=== PATIENT | female | born 1965 | race Caucasian/White ===

== ENCOUNTER 2017-07-29 15:15 | Emergency (ER) | payer OTHER ==
--- NOTE | 2017-07-29 17:22 | ED ---
General Adult HPI - General Chief complaint: Vaginal Bleeding Stated complaint: Female -sent by Time Seen by Provider: 07/29/17 16:32 Source: patient, family Mode of arrival: ambulatory Limitations: no limitations - History of Present Illness Initial comments: the patient is a 51-year-old female who presents with a chief complaint of vaginal bleeding. The patient states that her last menstrual period Was in September of this year.the patient states that she started having a period about one month ago and has continued to bleed until now. The patient has been seen by her primary care physician for this issue and he started her on control. The patient states that since that time, the bleeding has improved however it is not gone away. The patient was seen by her primary care doctor again today who gisela blood and sent her to the emergency department. The patient admits to being more fatigued recently and to having some cramping lower abdominal pain however she does not admit to any dizziness, lightheadedness, chest pain, or shortness of breath. The patient cannot identify any inciting incidences. There are no aggravating or alleviating factors. The patient states that she was having to change her pain Her about every 3 hours however this has improved since starting the control. - Related Data Home Medications Medication Instructions Recorded Confirmed Lisinopril [Zestril] 5 mg PO DAILY 10/30/15 07/29/17 Multivitamins, Thera [Multivitamin 1 tab PO DAILY 07/29/17 07/29/17 (formulary)] Omeprazole [PriLOSEC] 20 mg PO AC-BRKFST 07/29/17 07/29/17 Allergies Allergy/AdvReac Type Severity Reaction Status Date / Time No Known Allergies Allergy Verified 07/29/17 16:47 Review of Systems ROS Statement: Those systems with pertinent positive or pertinent negative responses have been documented in the HPI. ROS Other: All systems not noted in ROS Statement are negative. Constitutional: Denies: fever Eyes: Denies: vision change ENT: Denies: ear pain, throat pain Respiratory: Denies: cough Cardiovascular: Denies: chest pain Endocrine: Reports: fatigue Gastrointestinal: Reports: abdominal pain. Denies: nausea, vomiting Genitourinary: Reports: abnormal menses. Denies: dysuria, hematuria, discharge Musculoskeletal: Denies: back pain Skin: Denies: rash, lesions Neurological: Denies: headache Past Medical History Past Medical History: Hypertension History of Any Multi-Drug Resistant Organisms: None Reported Past Surgical History: No Surgical Hx Reported Past Psychological History: No Psychological Hx Reported Smoking Status: Never smoker Past Alcohol Use History: None Reported Past Drug Use History: None Reported General Exam Limitations: no limitations General appearance: alert, in no apparent distress Head exam: Present: atraumatic, normocephalic Eye exam: Present: normal appearance ENT exam: Present: mucous membranes moist Respiratory exam: Present: normal lung sounds bilaterally Cardiovascular Exam: Present: regular rate, normal rhythm GI/Abdominal exam: Present: soft, tenderness (patient has mild tenderness palpation in the left lower quadrant). Absent: distended, guarding Rectal exam: Present: deferred External exam: Present: normal external exam Speculum exam: Present: vaginal bleeding By manual exam: Present: normal by manual exam. Absent: cervical motion tenderness, adnexal tenderness Extremities exam: Present: normal inspection Back exam: Present: normal inspection Neurological exam: Present: alert, oriented X3 Psychiatric exam: Present: normal affect, normal mood Skin exam: Present: warm, dry, intact, pallor (patient appears to be pale however when questioning her family, they say that her color appears normal.) Course Vital Signs 07/29/17 07/29/17 15:28 19:01 Temperature 97.8 F 97.6 F Pulse Rate 83 84 Respiratory 16 20 Rate Blood Pressure 181/95 159/79 O2 Sat by Pulse 99 96 Oximetry Medical Decision Making - Medical Decision Making patient is a 51-year-old who presents with a chief complaint of vaginal bleeding times one month. The patient is perimenopausal and has not had a period since September. The patient states that she was seen and sent in by her primary care physician. She had lab work drawn today and she states that her primary care is going to contact the emergency department for further direction. I have not heard from her primary care physician at this time, I sent a page out to him prior to ordering lab work. 7:26 PM I spoke with the patient's primary care physician over the phone. The patient' s ultrasound showed a thickened endometrium, a small fundal fibroid. Otherwise anatomy was within normal limits. Laboratory evaluation of this patient shows a stable hemoglobin without any significant lab abnormality. Urinalysis shows gross blood however this is likely secondary to vaginal bleeding and not indicative of a urinary tract infection. At this time, patient will be referred to [facility], instructed to follow up with primary care in 1 week. At this time, patient is stable for discharge. She understands discharge instructions. - Lab Data Result diagrams: 07/29/17 18:46 07/29/17 18:46 Lab Results 07/29/17 07/29/17 07/29/17 Range/Units 18:46 18:46 18:46 WBC 7.3 (3.8-10.6) k/uL RBC 4.44 (3.80-5.40) m/uL Hgb 13.0 (11.4-16.0) gm/dL Hct 40.6 (34.0-46.0) % MCV 91.3 (80.0-100.0) fL MCH 29.3 (25.0-35.0) pg MCHC 32.2 (31.0-37.0) g/dL RDW 13.7 (11.5-15.5) % Plt Count 260 (150-450) k/uL Neutrophils % 68 % Lymphocytes % 23 % Monocytes % 5 % Eosinophils % 2 % Basophils % 1 % Neutrophils # 5.0 (1.3-7.7) k/uL Lymphocytes # 1.7 (1.0-4.8) k/uL Monocytes # 0.4 (0-1.0) k/uL Eosinophils # 0.1 (0-0.7) k/uL Basophils # 0.1 (0-0.2) k/uL Sodium 140 (137-145) mmol/L Potassium 3.8 (3.5-5.1) mmol/L Chloride 106 (98-107) mmol/L Carbon Dioxide 25 (22-30) mmol/L Anion Gap 9 mmol/L BUN 12 (7-17) mg/dL Creatinine 0.68 (0.52-1.04) mg/dL Est GFR (MDRD) Af Amer >60 (>60 ml/min/1.73 sqM) Est GFR (MDRD) Non-Af >60 (>60 ml/min/1.73 sqM) Glucose 86 (74-99) mg/dL Calcium 9.3 (8.4-10.2) mg/dL HCG, Qual Not Detected Urine Color Light Red Urine Appearance Cloudy H (Clear) Urine pH 5.5 (5.0-8.0) Ur Specific [place] 1.008 (1.001-1.035) Urine Protein 1+ H (Negative) Urine Glucose (UA) Negative (Negative) Urine Ketones Trace H (Negative) Urine Blood Large H (Negative) Urine Nitrite Negative (Negative) Urine Bilirubin Negative (Negative) Urine Urobilinogen <2.0 (<2.0) mg/dL Ur Leukocyte Esterase Large H (Negative) Urine RBC >182 H (0-5) /hpf Urine WBC 59 H (0-5) /hpf Ur Squamous Epith Cells 1 (0-4) /hpf Urine Bacteria Occasional H (None) /hpf Hyaline Casts 3 H (0-2) /lpf Urine Mucus Rare H (None) /hpf Disposition Clinical Impression: Dysfunctional uterine bleeding Disposition: HOME SELF-CARE Condition: Good Instructions: Dysfunctional Uterine Bleeding (ED), Menopause (ED) Referrals: Reginald Perea MD [Primary Care Provider] - 1-2 days Kacy Seaman MD [STAFF PHYSICIAN] - 1-2 days
--- NOTE | 2017-07-29 18:23 | US ---
EXAMINATION TYPE: US transvaginal DATE OF EXAM: 07/29/2017 COMPARISON: 10/28/2012 CLINICAL HISTORY: Pain. abnormal bleeding TECHNIQUE: Transvaginal (TV) Date of LMP: 06/29/2018 EXAM MEASUREMENTS: Uterus: 9.8 x 6.8 x 7.2 cm Endometrial Stripe: 2.1 cm 1. Uterus: Anteverted Hypoechoic area seen measuring 2.6 x 2.4 x 2.9cm 2. Endometrium: appears thickened 3. Right Ovary: Obscured by overlying bowel gas 4. Left Ovary: Obscured by overlying bowel gas 5. Bilateral Adnexa: wnl 6. Posterior cul-de-sac: wnl Hypoechoic area visualized in uterus measuring 2.6 x 2.4 x 2.9cm endometrium appears thickened IMPRESSION: No adnexal mass. Abnormal thickened endometrium. Follow-up is recommended. This appears n ew compared to old exam. There is probably a 2.5 cm uterine fundal fibroid.
[2017-07-29 19:02] VITALS: BP 159/79; PULSE 84; RESP 20; TEMP 97.6
[2017-07-29 19:03] LABS: Basophils # (A) 0.1 k/uL (0-0.2); Basophils % (A) 1 %; CH 29.5; CHCM 32.5; Eosinophils # (A) 0.1 k/uL (0-0.7); Eosinophils % (A) 2 %; HCT 40.6 % (34.0-46.0); HDW 2.53; Luc # (Auto) 0.08; Luc % (Auto) 1; Lymphocytes # (A) 1.7 k/uL (1.0-4.8); Lymphocytes % (A) 23 %; MCH 29.3 pg (25.0-35.0); MCHC 32.2 g/dL (31.0-37.0); MCV 91.3 fL (80.0-100.0); Mean Platelet Volume 8.2; Monocytes # (A) 0.4 k/uL (0-1.0); Monocytes % (A) 5 %; Neutrophils % (A) 68 %; RBC 4.44 m/uL (3.80-5.40); RDW 13.7 % (11.5-15.5); WBC 7.3 k/uL (3.8-10.6); WBC (Perox) 7.41
[2017-07-29 19:07] LABS: Appearance,Urine Cloudy (Clear); Bacteria,Urine Occasional /hpf; Bilirubin,Urine Negative (Negative); Glucose,Urine (UA) Negative (Negative); HCG,Qualitative Serum Not Detected; Ketones,Urine Trace (Negative); Leukocyte Esterase,Urine Large (Negative); Mucus,Urine Rare /hpf; Nitrite,Urine Negative (Negative); PH, Urine 5.5 (5.0-8.0); Particle Count 10170; Protein,Urine 1+ (Negative); RBC,Urine >182 /hpf (0-5); Specific Gravity,Urine 1.008 (1.001-1.035); Squamous Epithelial Cell,Urine 1 /hpf (0-4); UA Billing (MACRO vs. MICRO) MICRO; Urobilinogen,Urine <2.0 mg/dL (<2.0); WBC,Urine 59 /hpf (0-5)
[2017-07-29 19:09] LABS: Anion Gap 9 mmol/L; Blood Urea Nitrogen 12 mg/dL (7-17); Calcium 9.3 mg/dL (8.4-10.2); Carbon Dioxide 25 mmol/L (22-30); Chloride 106 mmol/L (98-107); Glucose 86 mg/dL (74-99); Non-African American GFR(MDRD) >60 (>60 ml/min/1.73 sqM); Potassium 3.8 mmol/L (3.5-5.1); Sodium 140 mmol/L (137-145)
== END 2017-07-29 19:45 | disposition home or self-care (01) ==
LOC: EC 15:15
DX: N93.8 Other specified abnormal uterine and vaginal bleeding (principal); R10.32 Left lower quadrant pain; I10 Essential (primary) hypertension; Z79.3 Long term (current) use of hormonal contraceptives; Z79.899 Other long term (current) drug therapy
CPT/HCPCS: 36415; 76830; 80048; 81001; 84703; 85025; 99284

== ENCOUNTER → 2017-10-30 | Outpatient (CLI) | payer OTHER ==
[2017-10-30 17:34] LABS: Basophils # (A) 0.1 k/uL (0-0.2); Basophils % (A) 1 %; Eosinophils # (A) 0.3 k/uL (0-0.7); Eosinophils % (A) 4 %; HCT 35.1 % (34.0-46.0); HGB 10.3 gm/dL (11.4-16.0); Hypochromasia Marked; Lymphocytes # (A) 2.3 k/uL (1.0-4.8); Lymphocytes % (A) 33 %; MCH 25.8 pg (25.0-35.0); MCHC 29.4 g/dL (31.0-37.0); MCV 87.8 fL (80.0-100.0); Mean Platelet Volume 7.8; Monocytes # (A) 0.4 k/uL (0-1.0); Monocytes % (A) 5 %; Neutrophils # (A) 3.7 k/uL (1.3-7.7); Neutrophils % (A) 54 %; Platelet Count 277 k/uL (150-450); WBC 6.9 k/uL (3.8-10.6)
== END | disposition home or self-care (01) ==
LOC: LABWHC1 17:00
PROVIDERS: ATTEND Obstetrics & Gynecology
DX: Z01.818 Encounter for other preprocedural examination (principal); Z01.812 Encounter for preprocedural laboratory examination; N95.0 Postmenopausal bleeding
CPT/HCPCS: 36415; 82670; 83001; 83002; 85025; 93005

== ENCOUNTER → 2017-11-05 | Day surgery (SDC) | payer OTHER ==
[2017-11-01 10:21] VITALS: BMI 42.9
[~2017-11-05] MED LIST: DEXAMETHASONE SOD PHOSPHATE 10 MG/ML 1 ML VIAL IV ONE; IBUPROFEN 200 MG TAB PO ONE; KETOROLAC 30 MG/ML 1 ML VIAL ONE; LACTATED RINGERS 1,000 ML IV SCH; LIDOCAINE 1% 20 ML VIAL (10MG/ML) FOR IV START INTRADERMA ONE; MIDAZOLAM 2 MG/2 ML VIAL ONE; MORPHINE SULFATE 2 MG/ML SYRINGE IV PRN; ONDANSETRON 4 MG/2 ML VIAL IVP ONE; ONDANSETRON 4 MG/2 ML VIAL IVP PRN; PROPOFOL 10 MG/ML 20 ML VIAL IV ONE; Pre Op ABX Message 1 EACH MISC MISCELLANE ONE; SUCCINYLCHOLINE CHLORIDE 100 MG/5 ML SYR IV ONE
--- NOTE | 2017-11-05 12:59 | P.OP ---
Date of Procedure: 11/05/17 Preoperative Diagnosis: Postmenopausal bleeding Postoperative Diagnosis: Same with cervical polyp Procedure(s) Performed: D&C with hysteroscopy Anesthesia: GORGE Surgeon: Paco Brar Estimated Blood Loss (ml): 5 Pathology: other (Uterine curettings with polyp) Condition: stable Disposition: same day Operative Findings: Polyp noted at cervical os Description of Procedure: Patient was taken to the operating suite where a general anesthetic was found be adequate. She was prepped and draped in the normal sterile fashion and placed in dorsal lithotomy position. Initially a weighted speculum was inserted into the vagina and the lip cervix identified and grasped with Allis clamp a polyp was noted at the cervical os. Once this was accomplished cervix was dilated camera was inserted. No specific findings were noted within the uterine cavity other than it looks like at some point she may have had some scarring of the lining of her uterus based on architecture of the lining of the uterus. Once this was accomplished the polyp was grasped with a ring forceps and in a clockwise motion it was turned until it and no bleeding was noted. Sharp curettings of the endometrium were then obtained collected on Telfa and sent to pathology for evaluation once this was finished patient was taken to the recovery room in stable and satisfactory condition and sponge, lap , and needle counts were all correct 2. Plan - Discharge Summary New Discharge Prescriptions: New Ibuprofen [Motrin] 600 mg PO Q6HR PRN #30 tab PRN Reason: Pain No Action Lisinopril [Zestril] 5 mg PO DAILY Omeprazole [PriLOSEC] 20 mg PO AC-BRKFST PRN PRN Reason: acid reflux Multivitamins, Thera [Multivitamin (formulary)] 1 tab PO DAILY Discharge Medication List Lisinopril [Zestril] 5 mg PO DAILY 10/30/15 [History] Multivitamins, Thera [Multivitamin (formulary)] 1 tab PO DAILY 07/29/17 [History ] Omeprazole [PriLOSEC] 20 mg PO AC-BRKFST PRN 07/29/17 [History] Ibuprofen [Motrin] 600 mg PO Q6HR PRN #30 tab 11/05/17 [Rx] Follow up Appointment(s)/Referral(s): Paco Brar DO [Doctor of Osteopathic Medicine] - 2 Weeks Activity/Diet/Wound Care/Special Instructions: No heavy lifting, limit stairs and driving today, and pelvic rest. If any high temperatures, heavy bleeding, or severe pain call my office Discharge Disposition: HOME SELF-CARE
[2017-11-05 13:23] VITALS: TEMP 97.3
[2017-11-05 13:50] VITALS: BP 150/95; PULSE 69; RESP 15
== END | disposition home or self-care (01) ==
LOC: OR 11:15
PROVIDERS: ATTEND Obstetrics & Gynecology
DX: N84.0 Polyp of corpus uteri (principal); N95.0 Postmenopausal bleeding; R93.8 Abnormal findings on diagnostic imaging of other specified body structures; I10 Essential (primary) hypertension; I44.7 Left bundle-branch block, unspecified; Z79.899 Other long term (current) drug therapy
CPT/HCPCS: 81025; 88305

== ENCOUNTER → 2018-07-28 | Outpatient (CLI) | payer OTHER ==
--- NOTE | 2018-07-29 13:39 | MM ---
Reason for exam: screening (asymptomatic). Last mammogram was performed 2 years and 6 months ago. History: Patient had first child at age 32. Family history of breast cancer in 2 paternal cousins. Physical Findings: A clinical breast exam by your physician is recommended on an annual basis and results should be correlated with mammographic findings. MG 3D Screening Mammo W/Cad Bilateral CC and MLO view(s) were taken. Prior study comparison: January 18, 2016, bilateral MG 3d screening mammo w/cad. March 01, 2015, mammogram, performed at [facility]. There are scattered fibroglandular densities. There are benign appearing round calcifications in the right breast. There is chronic nodularity in the left breast. There is no discrete abnormality. ASSESSMENT: Benign, BI-RAD 2 RECOMMENDATION: Routine screening mammogram of both breasts in 1 year.
== END | disposition home or self-care (01) ==
LOC: RADMAMWWP 13:09
PROVIDERS: ATTEND Family Medicine
DX: Z12.31 Encounter for screening mammogram for malignant neoplasm of breast (principal)
CPT/HCPCS: 77063; 77067

== ENCOUNTER 2018-07-30 12:00 | Day surgery (SDC) | payer OTHER ==
[2018-07-25 15:50] VITALS: BMI 44.4
[2018-07-30 12:31] VITALS: TEMP 98.7
[2018-07-30] MEDS ORDERED: LIDOCAINE 1% 20 ML VIAL (10MG/ML) FOR IV START INTRADERMA ONE ×2 (12:39→12:41)
[2018-07-30] MEDS: LACTATED RINGERS 1,000 ML IV SCH ×2 (12:39→12:40)
--- NOTE | 2018-07-30 12:43 | P.GSHP ---
History of Present Illness H&P Date: 07/30/18 Chief Complaint: Screening colonoscopy This a 52-year-old female referred from Dr. Perea. Patient is today for screening colonoscopy. She denies a significant GI complaints. Past Medical History Past Medical History: GERD/Reflux, Hypertension Additional Past Medical History / Comment(s): menorrhagia History of Any Multi-Drug Resistant Organisms: None Reported Past Surgical History: No Surgical Hx Reported Additional Past Surgical History / Comment(s): EGD; Cyst on LT wrist, D& C Past Anesthesia/Blood Transfusion Reactions: No Reported Reaction Smoking Status: Never smoker - Past Family History Father Family Medical History: Cancer Additional Family Medical History / Comment(s): Skin CA Medications and Allergies Home Medications Medication Instructions Recorded Confirmed Type Lisinopril [Zestril] 10 mg PO DAILY 10/30/15 07/30/18 History Multivitamins, Thera [Multivitamin 1 tab PO DAILY 07/29/17 07/30/18 History (formulary)] Omeprazole [PriLOSEC] 20 mg PO AC-BRKFST PRN 07/29/17 07/30/18 History Ibuprofen [Motrin] 600 mg PO Q6HR PRN #30 tab 11/05/17 07/30/18 Rx Allergies Allergy/AdvReac Type Severity Reaction Status Date / Time No Known Allergies Allergy Verified 07/30/18 12:27 Surgical - Exam Vital Signs Temp Pulse Resp BP Pulse Ox 98.7 F 103 H 16 182/84 97 07/30/18 12:29 07/30/18 12:29 07/30/18 12:29 07/30/18 12:29 07/30/18 12:29 - General well developed, no distress - Eyes PERRL - ENT normal pinna - Neck no masses - Respiratory normal expansion - Cardiovascular Rhythm: regular - Abdomen Abdomen: soft, non tender Assessment and Plan Assessment: We'll perform screening colonoscopy.
--- NOTE | 2018-07-30 12:59 | P.OP ---
Date of Procedure: 07/30/18 Preoperative Diagnosis: Screening colonoscopy Postoperative Diagnosis: Normal colon Procedure(s) Performed: Colonoscopy Anesthesia: MAC Surgeon: Yosvany Loyola Pathology: none sent Condition: stable Disposition: PACU Description of Procedure: PROCEDURE: The patient was placed on the endoscopy table in the lateral position. Digital rectal examination was performed which revealed no abnormalities. The prostate was symmetrical without nodules. Flexible colonoscope was then placed in the patient's anus and passed throughout the entire colon. The ileocecal valve was visualized. The cecum, ascending, transverse, descending and sigmoid colon were normal. The rectum was normal as well. There were no masses, polyps or diverticula noted in the entire colon. SUMMARY OF FINDINGS: Normal colonoscopy.
[2018-07-30 13:23] VITALS: BP 124/81; PULSE 70; RESP 16
== END 2018-07-30 14:17 | disposition home or self-care (01) ==
LOC: ORWHC2ENDO 12:00
PROVIDERS: ATTEND Surgery
DX: Z12.11 Encounter for screening for malignant neoplasm of colon (principal); K21.9 Gastro-esophageal reflux disease without esophagitis; I10 Essential (primary) hypertension; Z79.899 Other long term (current) drug therapy
CPT/HCPCS: 81025; G0121

== ENCOUNTER 2018-09-09 20:54 | Emergency (ER) | payer OTHER ==
[2018-09-09] MEDS ORDERED: ONDANSETRON 4 MG/2 ML VIAL IVP STA (21:36)
[2018-09-09] MEDS ORDERED: MECLIZINE 12.5 MG TAB PO STA (21:36)
[2018-09-09] MEDS ORDERED: SODIUM CHLORIDE 0.9% 1,000 ML IV STA (21:36)
[2018-09-09 22:00] LABS: Basophils % (A) 1 %; Eosinophils # (A) 0.3 k/uL (0-0.7); Eosinophils % (A) 4 %; HCT 40.9 % (34.0-46.0); Lymphocytes # (A) 2.5 k/uL (1.0-4.8); Lymphocytes % (A) 37 %; MCH 28.4 pg (25.0-35.0); MCHC 31.7 g/dL (31.0-37.0); MCV 89.5 fL (80.0-100.0); Mean Platelet Volume 7.6; Monocytes # (A) 0.4 k/uL (0-1.0); Monocytes % (A) 6 %; Neutrophils # (A) 3.3 k/uL (1.3-7.7); Neutrophils % (A) 48 %; Platelet Count 225 k/uL (150-450); RBC 4.57 m/uL (3.80-5.40); RDW 13.6 % (11.5-15.5); WBC 6.7 k/uL (3.8-10.6)
[2018-09-09 22:06] LABS: Anion Gap 10 mmol/L; Calcium 9.6 mg/dL (8.4-10.2); Carbon Dioxide 24 mmol/L (22-30); Chloride 108 mmol/L (98-107); Glucose 130 mg/dL (74-99); Phosphorus 3.9 mg/dL (2.5-4.5); Sodium 142 mmol/L (137-145); Total Bilirubin 0.5 mg/dL (0.2-1.3)
[2018-09-09 22:10] LABS: Albumin 4.1 g/dL (3.5-5.0); Potassium 4.6 mmol/L (3.5-5.1); Total Protein 7.5 g/dL (6.3-8.2)
[2018-09-09 22:11] LABS: ALT 18 U/L (9-52); AST 33 U/L (14-36); Alkaline Phosphatase 65 U/L (38-126); Blood Urea Nitrogen 14 mg/dL (7-17); Magnesium 2.1 mg/dL (1.6-2.3)
--- NOTE | 2018-09-09 22:11 | ED ---
Dizziness HPI - General Chief Complaint: Dizziness Stated Complaint: dizziness Time Seen by Provider: 09/09/18 21:09 Source: patient, RN notes reviewed, old records reviewed Mode of arrival: ambulatory Limitations: no limitations - History of Present Illness Initial Comments: This is a 53-year-old female the ER for evaluation. Patient presents with vertiginous-like symptoms. Patient has a few days of severe spinning that is positional mainly when she lays down. Patient states she was recently seen in urgent care and prescribed medication for a sinus infection. She is not really started taking the medication currently. Denies headache and denies any other neurological deficit MD Complaint: dizziness -: days(s) Timing: sudden onset, intermittent, now resolved Description: "room spinning" History of Same: No History of Trauma: No Severity: moderate Improves With: remaining still Worsens With: movement Associated Symptoms: denies other symptoms - Related Data Home Medications Medication Instructions Recorded Confirmed Lisinopril [Zestril] 10 mg PO DAILY 10/30/15 07/30/18 Multivitamins, Thera [Multivitamin 1 tab PO DAILY 07/29/17 07/30/18 (formulary)] Omeprazole [PriLOSEC] 20 mg PO AC-BRKFST PRN 07/29/17 07/30/18 Previous Rx's Medication Instructions Recorded Ibuprofen [Motrin] 600 mg PO Q6HR PRN #30 tab 11/05/17 Allergies Allergy/AdvReac Type Severity Reaction Status Date / Time No Known Allergies Allergy Verified 09/09/18 21:06 Review of Systems ROS Statement: Those systems with pertinent positive or pertinent negative responses have been documented in the HPI. ROS Other: All systems not noted in ROS Statement are negative. Past Medical History Past Medical History: GERD/Reflux, Hypertension Additional Past Medical History / Comment(s): menorrhagia History of Any Multi-Drug Resistant Organisms: None Reported Past Surgical History: No Surgical Hx Reported Additional Past Surgical History / Comment(s): EGD; Cyst on LT wrist, D& C Past Anesthesia/Blood Transfusion Reactions: No Reported Reaction Past Psychological History: No Psychological Hx Reported Smoking Status: Never smoker Past Alcohol Use History: None Reported Past Drug Use History: None Reported - Past Family History Father Family Medical History: Cancer Additional Family Medical History / Comment(s): Skin CA General Exam - General Exam Comments Initial Comments: Heel giron and finger-nose testing is negative Limitations: no limitations General appearance: alert, in no apparent distress Head exam: Present: atraumatic, normocephalic, normal inspection Eye exam: Present: normal appearance, PERRL, EOMI. Absent: scleral icterus, conjunctival injection, nystagmus, periorbital swelling ENT exam: Present: normal exam, mucous membranes moist Neck exam: Present: normal inspection. Absent: tenderness, meningismus, lymphadenopathy Respiratory exam: Present: normal lung sounds bilaterally. Absent: respiratory distress, wheezes, rales, rhonchi, stridor Cardiovascular Exam: Present: regular rate, normal rhythm, normal heart sounds. Absent: systolic murmur, diastolic murmur, rubs, gallop, clicks GI/Abdominal exam: Present: soft, normal bowel sounds. Absent: distended, tenderness, guarding, rebound, rigid Extremities exam: Present: normal inspection, full ROM, normal capillary refill. Absent: tenderness, pedal edema, joint swelling, calf tenderness Back exam: Present: normal inspection Neurological exam: Present: alert, oriented X3, CN II-XII intact Psychiatric exam: Present: normal affect, normal mood Skin exam: Present: warm, dry, intact, normal color. 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 ] Respiratory 18 20 Rate Blood Pressure 158/78 Blood Pressure [Sitting] Blood Pressure [Standing] Blood Pressure 166/85 [Supine] O2 Sat by Pulse 99 92 L 96 Oximetry 09/09/18 09/09/18 09/09/18 22:25 22:26 23:00 Temperature Pulse Rate 76 Pulse Rate [ 78 82 Plant Reliability Engineer ] Respiratory 20 20 Rate Blood Pressure 173/101 Blood Pressure 179/99 [Sitting] Blood Pressure 173/101 [Standing] Blood Pressure [Supine] O2 Sat by Pulse 99 Oximetry 09/10/18 00:00 Temperature 97.9 F Pulse Rate 80 Pulse Rate [ Plant Reliability Engineer ] Respiratory Rate Blood Pressure 150/89 Blood Pressure [Sitting] Blood Pressure [Standing] Blood Pressure [Supine] O2 Sat by Pulse 99 Oximetry - Reevaluation(s) Reevaluation #1: Record is reviewed and noncontributory Reevaluation #2: Does have 2 bouts of vertigo here in the emergency room currently symptom free Reevaluation #3: [place] patient at length regarding vertigo, symptoms or other disease patient understands and questions are answered Medical Decision Making - Medical Decision Making 51 female the ER for evaluation of vertiginous symptoms. Patient has CT here which is negative normal neurological exam. Patient given exercises at home to help with vertigo and can be discharged - Lab Data Result diagrams: 09/09/18 21:25 09/09/18 21:25 Lab Results 09/09/18 09/09/18 09/09/18 Range/Units 21:25 21:25 21:25 WBC 6.7 (3.8-10.6) k/uL RBC 4.57 (3.80-5.40) m/uL Hgb 13.0 (11.4-16.0) gm/dL Hct 40.9 (34.0-46.0) % MCV 89.5 (80.0-100.0) fL MCH 28.4 (25.0-35.0) pg MCHC 31.7 (31.0-37.0) g/dL RDW 13.6 (11.5-15.5) % Plt Count 225 (150-450) k/uL Neutrophils % 48 % Lymphocytes % 37 % Monocytes % 6 % Eosinophils % 4 % Basophils % 1 % Neutrophils # 3.3 (1.3-7.7) k/uL Lymphocytes # 2.5 (1.0-4.8) k/uL Monocytes # 0.4 (0-1.0) k/uL Eosinophils # 0.3 (0-0.7) k/uL Basophils # 0.0 (0-0.2) k/uL Sodium 142 (137-145) mmol/L Potassium 4.6 (3.5-5.1) mmol/L Chloride 108 H (98-107) mmol/L Carbon Dioxide 24 (22-30) mmol/L Anion Gap 10 mmol/L BUN 14 (7-17) mg/dL Creatinine 0.64 (0.52-1.04) mg/dL Est GFR (CKD-EPI)AfAm >90 (>60 ml/min/1.73 sqM) Est GFR (CKD-EPI)NonAf >90 (>60 ml/min/1.73 sqM) Glucose 130 H (74-99) mg/dL Calcium 9.6 (8.4-10.2) mg/dL Phosphorus 3.9 (2.5-4.5) mg/dL Magnesium 2.1 (1.6-2.3) mg/dL Total Bilirubin 0.5 (0.2-1.3) mg/dL AST 33 (14-36) U/L ALT 18 (9-52) U/L Alkaline Phosphatase 65 (38-126) U/L Total Creatine Kinase 38 (30-135) U/L CK-MB (CK-2) <0.2 (0.0-2.4) ng/mL CK-MB (CK-2) Rel Index Troponin I <0.012 (0.000-0.034) ng/mL Total Protein 7.5 (6.3-8.2) g/dL Albumin 4.1 (3.5-5.0) g/dL - Radiology Data Radiology results: report reviewed (CT brain is negative for acute disease), image reviewed Disposition Clinical Impression: Benign paroxysmal positional vertigo Disposition: HOME SELF-CARE Condition: Good Instructions: Vertigo (ED) Is patient prescribed a controlled substance at d/c from ED?: No Referrals: Reginald Perea MD [Primary Care Provider] - 1-2 days
[2018-09-09 22:25] VITALS: RESP 20
[2018-09-09 22:25] LABS: Creatine Kinase 38 U/L (30-135)
[2018-09-09 22:38] LABS: Creatine Kinase MB <0.2 ng/mL (0.0-2.4); Troponin I <0.012 ng/mL (0.000-0.034)
--- NOTE | 2018-09-09 23:08 | CT ---
EXAMINATION TYPE: CT brain wo con DATE OF EXAM: 09/09/2018 COMPARISON: None HISTORY: Dizziness on and off x [address] DLP: 1115.4 mGycm Automated exposure control for dose reduction was used. FINDINGS: Ventricles and sulci appear normal. There is no mass effect nor midline shift. There is no sign of in tracranial hemorrhage. The calvarium is intact. There is no evidence of cerebral edema. IMPRESSION: NORMAL HEAD CT SCAN.
[2018-09-10 00:31] VITALS: BP 150/89; PULSE 80; TEMP 97.9
== END 2018-09-10 00:34 | disposition home or self-care (01) ==
LOC: EC 20:54
DX: H81.10 Benign paroxysmal vertigo, unspecified ear (principal); I10 Essential (primary) hypertension; Z79.899 Other long term (current) drug therapy
CPT/HCPCS: 36415; 93005; 80053; 82550; 82553; 83735; 84100; 84484; 85025; 70450; 99285; 96374; 96361 ×3; J2405

== ENCOUNTER 2023-06-22 15:13 | Emergency (ER) | payer BC, OTHER ==
--- NOTE | 2023-06-22 15:48 | ED ---
General Adult HPI - General Chief complaint: Chest Pain Stated complaint: chest pains and pressure left side Time Seen by Provider: 06/22/23 15:33 Source: patient Mode of arrival: ambulatory Limitations: no limitations - History of Present Illness Initial comments: Patient presents to the ED complaining of having constant left parasternal chest pain for the past day and a half. Patient states that this pain radiates through to her back. Patient denies any other radiation. Patient denies known trauma or injury, fever or chills, headache, focal numbness/weakness/neuro deficit, neck/arm/jaw pain, pleuritic pain, dyspnea, cough or cold symptoms, pal pitations, dizziness, nausea/vomiting/diaphoresis, abdominal pain, bloody or melanotic stool, dysuria or urinary symptoms, decreased urine output, leg or calf swelling or pain, or any other symptoms or complaints. Patient's CAD risk factors are hypertension, obesity and family history of CAD (mother had stent placement). - Related Data Home Medications Medication Instructions Recorded Confirmed Multivitamins, Thera [Multivitamin 1 tab PO DAILY 07/29/17 06/22/23 (formulary)] Cyanocobalamin (Vitamin B-12) 1,000 mcg PO DAILY 06/22/23 06/22/23 [Vitamin B-12] buPROPion SR [Wellbutrin SR] 150 mg PO BID 06/22/23 06/22/23 lisinopriL [Zestril] 10 mg PO DAILY 06/22/23 06/22/23 Allergies Allergy/AdvReac Type Severity Reaction Status Date / Time No Known Allergies Allergy Verified 06/22/23 17:25 Review of Systems ROS Statement: Those systems with pertinent positive or pertinent negative responses have been documented in the HPI. ROS Other: All systems not noted in ROS Statement are negative. Past Medical History Past Medical History: GERD/Reflux, Hypertension Additional Past Medical History / Comment(s): menorrhagia History of Any Multi-Drug Resistant Organisms: None Reported Past Surgical History: No Surgical Hx Reported Additional Past Surgical History / Comment(s): EGD; Cyst on LT wrist, D& C Past Anesthesia/Blood Transfusion Reactions: No Reported Reaction Past Psychological History: No Psychological Hx Reported Smoking Status: Never smoker Past Alcohol Use History: None Reported Past Drug Use History: None Reported - Past Family History Father Family Medical History: Cancer Additional Family Medical History / Comment(s): Skin CA General Exam Limitations: no limitations General appearance: alert, in no apparent distress Head exam: Present: normocephalic ENT exam: Present: mucous membranes moist Neck exam: Present: other (Trachea is in midline) Respiratory exam: Present: normal lung sounds bilaterally, other (Reproducible left parasternal chest wall tenderness; no crepitation or deformity is appreciated). Absent: respiratory distress, wheezes, rales, rhonchi, stridor Cardiovascular Exam: Present: regular rate, normal rhythm, normal heart sounds, other (Normal radial pulses bilaterally) GI/Abdominal exam: Present: soft. Absent: tenderness, guarding Extremities exam: Present: other (Negative Homans sign bilaterally). Absent: tenderness, pedal edema, calf tenderness Neurological exam: Present: alert, oriented X3 Psychiatric exam: Present: normal affect Skin exam: Present: warm, dry, intact, normal color Course Vital Signs 06/22/23 06/22/23 15:41 16:59 Temperature 98.6 F Pulse Rate 75 87 Respiratory 18 18 Rate Blood Pressure 162/85 161/89 O2 Sat by Pulse 100 96 Oximetry - Reevaluation(s) Reevaluation #1: 06/22/23 17:44 Patient remains alert and breathing comfortably with a normal room air oxygen saturation. Patient denies development of any new pain or symptoms while in the ED. Patient and are aware of the patient's test results, and patient feels comfortable being discharged home at this time. Patient was counseled about chest pain, and she was clearly explained return and follow-up instructions. Patient was instructed to follow up closely with her primary care provider. Patient feels comfortable with this plan. EKG Findings - EKG Comments: EKG Findings:: ED physician interpretation (interpreted by me): Normal sinus rhythm, ventricular rate of 70 bpm, no ectopy, left bundle branch block, normal GA interval, QRS duration of 166 ms, normal QT interval, normal axis, no significant change when compared to 09/09/2018 EKG Medical Decision Making - Medical Decision Making Was pt. sent in by a medical professional or institution (, [facility], [employer], urgent care, hospital, or snf...) When possible be specific @ -No Did you speak to anyone other than the patient for history (EMS, parent, family, police, friend...)? What history was obtained from this source @ -No Did you review nursing and triage notes (agree or disagree)? Why? @ -I reviewed and agree with nursing and triage notes Were old charts reviewed (outside hosp., previous admission, EMS record, old EKG, old radiological studies, urgent care reports/EKG's, snf records)? Report findings @ -No old charts were reviewed Differential Diagnosis (chest pain, altered mental status, abdominal pain women, abdominal pain men, vaginal bleeding, weakness, fever, dyspnea, syncope, headache, dizziness, GI bleed, back pain, seizure, CVA, palpatations, mental health, musculoskeletal)? @ -Differential Chest Pain: Stable Angina, Unstable Angina, STEMI, NSTEMI, Aortic Dissection, Pneumothorax, Musculoskeletal, Esophageal Spasm, GERD, pulmonary embolism, this is not meant to be an all-inclusive list. EKG interpreted by me (3pts min.). @ -As above X-rays interpreted by me (1pt min.). @ -Chest x-ray was reviewed myself and shows no acute abnormality. I agree with the radiologist's interpretation as above. CT interpreted by me (1pt min.). @ -None done U/S interpreted by me (1pt. min.). @ -None done What testing was considered but not performed or refused? (CT, X-rays, U/S, labs)? Why? @ -None What meds were considered but not given or refused? Why? @ -None Did you discuss the management of the patient with other professionals (professionals i.e. , [employer], [employer], lab, RT, psych nurse, social media content specialist, costumed character entertainer, teacher, business practices officer, caseworker)? Give summary @ -No Was smoking cessation discussed for >3mins.? @ -No Was critical care preformed (if so, how long)? @ -No Were there social determinants of health that impacted care today? How? (Homelessness, low income, unemployed, alcoholism, drug addiction, transportation, low edu. Level, literacy, decrease access to med. care, group home, rehab)? @ -No Was there de-escalation of care discussed even if they declined (Discuss DNR or withdrawal of care, Hospice)? DNR status @ -No What co-morbidities impacted this encounter? (DM, HTN, Smoking, COPD, CAD, Cancer, CVA, ARF, Chemo, Hep., AIDS, mental health diagnosis, sleep apnea, morbid obesity)? @ -None Was patient admitted / discharged? Hospital course, mention meds given and route, prescriptions, significant lab abnormalities, going to OR and other pertinent info. @ -Patient reports having constant pain for the past day and a half or so. Patient's EKG shows a left bundle branch block, which is unchanged when compared to her EKG from 2019. Patient's troponin is negative. Patient's d-dimer is within normal limits. Patient's chest x-ray is unremarkable. Patient is alert and breathing comfortably with a normal room air oxygen saturation. Patient's chest pain is reproducible. I do not suspect an emergent medical condition at this time. Will discharge patient home at this time with instructions for close outpatient follow-up with her primary care provider. Undiagnosed new problem with uncertain prognosis? @ -No Drug Therapy requiring intensive monitoring for toxicity (Heparin, Nitro, Insulin, Cardizem)? @ -No Were any procedures done? @ -No Diagnosis/symptom? @ -Chest pain Acute, or Chronic, or Acute on Chronic? @ -Acute Uncomplicated (without systemic symptoms) or Complicated (systemic symptoms)? @ -Uncomplicated Side effects of treatment? @ -No Exacerbation, Progression, or Severe Exacerbation? @ -No Poses a threat to life or bodily function? How? (Chest pain, USA, ND, pneumonia, PE, COPD, DKA, ARF, appy, cholecystitis, CVA, Diverticulitis, Homicidal, S uicidal, threat to staff... and all critical care pts) @ -No - Lab Data Result diagrams: 06/22/23 15:40 06/22/23 15:40 Lab Results 06/22/23 06/22/23 06/22/23 Range/Units 15:40 15:40 15:40 WBC 6.0 (3.8-10.6) k/uL RBC 4.46 (3.80-5.40) m/uL Hgb 13.5 (11.4-16.0) gm/dL Hct 40.1 (34.0-46.0) % MCV 89.9 (80.0-100.0) fL MCH 30.2 (25.0-35.0) pg MCHC 33.6 (31.0-37.0) g/dL RDW 12.8 (11.5-15.5) % Plt Count 196 (150-450) k/uL MPV 8.6 Neutrophils % 48 % Lymphocytes % 33 % Monocytes % 5 % Eosinophils % 11 % Basophils % 1 % Neutrophils # 2.9 (1.3-7.7) k/uL Lymphocytes # 2.0 (1.0-4.8) k/uL Monocytes # 0.3 (0-1.0) k/uL Eosinophils # 0.6 (0-0.7) k/uL Basophils # 0.1 (0-0.2) k/uL PT 10.5 (10.0-12.5) sec INR 0.9 (<1.2) APTT 29.1 (22.0-30.0) sec D-Dimer 0.56 (<0.60) mg/L FEU Sodium 142 (137-145) mmol/L Potassium 4.1 (3.5-5.1) mmol/L Chloride 109 H (98-107) mmol/L Carbon Dioxide 25 (22-30) mmol/L Anion Gap 8 mmol/L BUN 12 (7-17) mg/dL Creatinine 0.77 (0.52-1.04) mg/dL Est GFR (CKD-EPI)AfAm >90 (>60 ml/min/1.73 sqM) Est GFR (CKD-EPI)NonAf 87 (>60 ml/min/1.73 sqM) Glucose 109 H (74-99) mg/dL Calcium 9.4 (8.4-10.2) mg/dL Magnesium 2.2 (1.6-2.3) mg/dL Total Bilirubin 0.4 (0.2-1.3) mg/dL AST 25 (14-36) U/L ALT 27 (4-34) U/L Alkaline Phosphatase 75 (38-126) U/L Troponin I (0.000-0.034) ng/mL NT-Pro-B Natriuret Pep 63 pg/mL Total Protein 7.1 (6.3-8.2) g/dL Albumin 4.2 (3.5-5.0) g/dL 06/22/23 Range/Units 15:40 WBC (3.8-10.6) k/uL RBC (3.80-5.40) m/uL Hgb (11.4-16.0) gm/dL Hct (34.0-46.0) % MCV (80.0-100.0) fL MCH (25.0-35.0) pg MCHC (31.0-37.0) g/dL RDW (11.5-15.5) % Plt Count (150-450) k/uL MPV Neutrophils % % Lymphocytes % % Monocytes % % Eosinophils % % Basophils % % Neutrophils # (1.3-7.7) k/uL Lymphocytes # (1.0-4.8) k/uL Monocytes # (0-1.0) k/uL Eosinophils # (0-0.7) k/uL Basophils # (0-0.2) k/uL PT (10.0-12.5) sec INR (<1.2) APTT (22.0-30.0) sec D-Dimer (<0.60) mg/L FEU Sodium (137-145) mmol/L Potassium (3.5-5.1) mmol/L Chloride (98-107) mmol/L Carbon Dioxide (22-30) mmol/L Anion Gap mmol/L BUN (7-17) mg/dL Creatinine (0.52-1.04) mg/dL Est GFR (CKD-EPI)AfAm (>60 ml/min/1.73 sqM) Est GFR (CKD-EPI)NonAf (>60 ml/min/1.73 sqM) Glucose (74-99) mg/dL Calcium (8.4-10.2) mg/dL Magnesium (1.6-2.3) mg/dL Total Bilirubin (0.2-1.3) mg/dL AST (14-36) U/L ALT (4-34) U/L Alkaline Phosphatase (38-126) U/L Troponin I <0.012 (0.000-0.034) ng/mL NT-Pro-B Natriuret Pep pg/mL Total Protein (6.3-8.2) g/dL Albumin (3.5-5.0) g/dL - Radiology Data Chest x-ray: No acute cardiopulmonary disease/process. Disposition Clinical Impression: Chest pain Disposition: HOME SELF-CARE Condition: Stable Instructions (If sedation given, give patient instructions): Chest Pain (ED) Additional Instructions: Return to the ER immediately should you develop new or worsening pain, shortness of breath, a fever, feeling dizzy or faint, vomiting, or new or worsening symptoms. Follow up closely with your primary care provider. Is patient prescribed a controlled substance at d/c from ED?: No Referrals: Cheng Elizabeth DO [Primary Care Provider] - 1-2 days Time of Disposition: 17:45
[2023-06-22 15:55] VITALS: RESP 18; TEMP 98.6
[2023-06-22 16:03] LABS: Basophils # (A) 0.1 k/uL (0-0.2); Basophils % (A) 1 %; Eosinophils # (A) 0.6 k/uL (0-0.7); Eosinophils % (A) 11 %; HCT 40.1 % (34.0-46.0); HGB 13.5 gm/dL (11.4-16.0); Lymphocytes % (A) 33 %; MCH 30.2 pg (25.0-35.0); MCHC 33.6 g/dL (31.0-37.0); MCV 89.9 fL (80.0-100.0); Mean Platelet Volume 8.6; Monocytes # (A) 0.3 k/uL (0-1.0); Monocytes % (A) 5 %; Neutrophils # (A) 2.9 k/uL (1.3-7.7); Neutrophils % (A) 48 %; Platelet Count 196 k/uL (150-450); RBC 4.46 m/uL (3.80-5.40); RDW 12.8 % (11.5-15.5)
--- NOTE | 2023-06-22 16:06 | XR ---
EXAMINATION TYPE: XR chest 2V DATE OF EXAM: 06/22/2023 3:56 PM CLINICAL INDICATION:Female, 57 years old with history of Chest Pain. COMPARISON: None. TECHNIQUE: XR chest 2V Frontal and lateral views of the chest. FINDINGS: Lungs/Pleura: There is no evidence of pleural effusion, focal consolidation, or pneumothorax. Pulmonary vascularity: Unremarkable. Heart/mediastinum: Cardiomediastinal silhouette is unremarkable. Musculoskeletal: No acute osseous pathology. IMPRESSION: No acute cardiopulmonary disease/process.
[2023-06-22 16:18] LABS: INR 0.9 (<1.2); Partial Thromboplastin Time 29.1 sec (22.0-30.0); Prothrombin Time 10.5 sec (10.0-12.5)
[2023-06-22 17:02] LABS: ALT 27 U/L (4-34); AST 25 U/L (14-36); African American GFR (CKD) >90 (>60 ml/min/1.73 sqM); Albumin 4.2 g/dL (3.5-5.0); Alkaline Phosphatase 75 U/L (38-126); Anion Gap 8 mmol/L; Blood Urea Nitrogen 12 mg/dL (7-17); Calcium 9.4 mg/dL (8.4-10.2); Carbon Dioxide 25 mmol/L (22-30); Chloride 109 mmol/L (98-107); Glucose 109 mg/dL (74-99); Magnesium 2.2 mg/dL (1.6-2.3); Non-African American GFR(CKD) 87 (>60 ml/min/1.73 sqM); Potassium 4.1 mmol/L (3.5-5.1); Sodium 142 mmol/L (137-145); Total Bilirubin 0.4 mg/dL (0.2-1.3); Total Protein 7.1 g/dL (6.3-8.2)
[2023-06-22 17:11] LABS: NT-Pro-B-Type Natriuretic Pept 63 pg/mL
[2023-06-22 17:56] VITALS: BP 145/83; PULSE 84
== END 2023-06-22 17:54 | disposition home or self-care (01) ==
LOC: EC 15:13
DX: I44.7 Left bundle-branch block, unspecified (principal); I10 Essential (primary) hypertension; Z79.899 Other long term (current) drug therapy
CPT/HCPCS: 36415; 71046; 80053; 83735; 83880; 84484; 85025; 85379; 85610; 85730; 93005; 99285

== ENCOUNTER → 2024-08-05 | Outpatient (CLI) | payer BC ==
--- NOTE | 2024-08-11 09:00 | MM ---
Reason for Exam: Screening (asymptomatic). Last screening mammogram was performed 11 month(s) ago. Patient History: Menarche at age 12. First Full-Term at age 32. Late child-bearing (after 30). Postmenopausal. Paternal cousin had breast cancer. Paternal cousin had breast cancer. Risk Values: Violet 5 year model risk: 1.9%. NCI Lifetime model risk: 11.7%. Prior Study Comparison: 12/22/2013 Screening Mammogram, [facility]. 03/01/2015 Screening Mammogram, [facility]. 01/18/2016 Bilateral Screening Mammogram, [facility]. 07/28/2018 Bilateral Screening Mammogram, [facility]. 12/29/2021 Bilateral Screening Mammogram, [facility]. 08/16/2023 Bilateral Screening Mammogram, [facility]. Tissue Density: There are scattered areas of fibroglandular density. Findings: Analyzed By CAD. Chronic nodularity anterior right breast. There is no suspicious group of microcalcifications or new suspicious mass in either breast. Overall Assessment: Benign, BI-RAD 2 Management: Screening Mammogram of both breasts in 1 year. Patient should continue monthly self-breast exams. A clinical breast exam by your physician is recommended on an annual basis. This exam should not preclude additional follow-up of suspicious palpable abnormalities. Note on Violet scores and lifetime risk: 1. A Violet score greater than 3% is considered moderate risk. If this is the case, consider specialist referral to assess eligibility for a risk reducing agent. 2. If overall lifetime risk for the development of breast cancer is 20% or higher, the patient may qualify for future screening with alternating mammogram and breast MRI. [facility], , 08/11/2024 8:58 AM. Electronically signed and approved by: Charlie Nixon M.D. Radiologist
== END | disposition home or self-care (01) ==
LOC: RADMAMWWP 07:12
PROVIDERS: ATTEND Family Medicine
DX: Z12.31 Encounter for screening mammogram for malignant neoplasm of breast (principal); Z78.0 Asymptomatic menopausal state; Z80.3 Family history of malignant neoplasm of breast; R92.323 Mammographic fibroglandular density, bilateral breasts
CPT/HCPCS: 77063; 77067